=== PATIENT | female | born 1990 | race Caucasian/White ===

== ENCOUNTER → 2016-11-16 | Outpatient (CLI) | payer OTHER ==
--- NOTE | 2016-11-16 09:56 | RAD ---
LIMITED ABDOMINAL ULTRASOUND Clinical History: US ABDOMEN/RUQ PAIN Comparison: None. Technique: Sonographic examination of the abdomen was performed and multiple grayscale and duplex Doppler static images were obtained. Findings: The majority of the liver is visualized and appears homogeneous. The liver measures 16.9 cm. Portal flow is hepatopetal. The common bile duct is normal in caliber, measuring 3 mm in diameter. The gallbladder wall is not thickened. Gallbladder sludge. There is no pericholecystic fluid. The pancreas is not well visualized due to overlying bowel gas. The right kidney is normal in morphology and echotexture and measures 12.6 x 5.7 x 3.9 cm. There is no hydronephrosis. Visualized portions of the abdominal aorta and IVC appear normal. IMPRESSION: Gallbladder sludge. There is otherwise no acute abdominal abnormality identified sonographically.
== END | disposition home or self-care (01) ==
LOC: US 07:43
PROVIDERS: ATTEND Obstetrics & Gynecology
DX: K82.8 Other specified diseases of gallbladder (principal); R10.11 Right upper quadrant pain
CPT/HCPCS: 76705